=== PATIENT | female | born 1965 | race American Indian/Alaskan Native ===

== ENCOUNTER 2020-07-16 08:15 | Outpatient (CLI) | payer BC ==
--- NOTE | 2020-07-17 08:03 | Mammography Report ---
DIGITAL SCREENING MAMMOGRAM WITH CAD, 07/16/2020 INDICATION: Routine screening mammography. TECHNIQUE: Digital bilateral 2D mammography was obtained in the craniocaudal and mediolateral obliq ue projections. This examination was interpreted with the benefit of Computer-Aided Detection analysi s. COMPARISON: 08/31/2015. FINDINGS: Breast Density: The breasts are heterogeneously dense, which may obscure small masses. There is no evidence of dominant mass, suspicious calcifications or architectural distortion in eithe r breast. IMPRESSION: Follow up recommendation: Routine yearly BI-RADS Category 1: Negative. A "normal" or negative report should not discourage follow up or biopsy of a clinically significant f inding. A written summary of these findings will be mailed to the patient. The patient will be entered into a mammography reporting system which will generate a reminder letter for the patient's next appointmen t at the appropriate interval. The [employer] recommends yearly mammograms starting at age 40 and continuing as l carlos as a woman is in good health. Breast MRI is recommended for women with an approximate 20-25% or greater lifetime risk of breast cancer, including women with a strong family history of breast or ova angus cancer or who have been treated for Hodgkin's disease. Signer Name: José Bell MD Signed: 07/17/2020 7:59 AM Workstation Name: [id number]
== END 2020-07-16 08:16 | disposition home or self-care (01) ==
LOC: SPVWC 08:15
PROVIDERS: ATTEND Family Medicine
DX: Z12.31 Encounter for screening mammogram for malignant neoplasm of breast (principal)
CPT/HCPCS: 77067